=== PATIENT | male | born 1945 | race Caucasian/White ===

== ENCOUNTER 2022-02-23 10:26 | Outpatient (CLI) | payer MEDICARE, SELFPAY ==
--- NOTE | ~2022-02-23 | XR_ITS ---
EXAM: XR lumbar spine 2-3V DATE: 02/23/2022 10:43 HISTORY: M54.50 -Low back pain, unspecifiedNON TRAUMA PAIN FOR 3 WEEK . COMPARISON: None available. FINDINGS: Lumbar scoliosis 5 nonrib-bearing lumbar-type vertebral bodies. Pedicles intact. Lumbar str aightening. Concave endplate deformities as can be seen with osteoporosis. Mild height loss at L3 and L5. Multilevel mild disc space narrowing and marginal osteophytosis. Multilevel facet hypertrophy an d sclerosis. No fracture or dislocation. IMPRESSION: Mild compression fractures at L3 and L5. Multilevel degenerative disc disease and facet a rthropathy. Reviewed, dictated and finalized at location K. IMPRESSION: Mild compression fractures at L3 and L5. Multilevel degenerative di sc disease and facet arthropathy.
== END 2022-02-23 10:27 | disposition home or self-care (01) ==
LOC: ANHIMG 10:30
PROVIDERS: PCP Family Medicine; Visit Provider Physician Assistant
DX: M51.36 Other intervertebral disc degeneration, lumbar region (principal)
CPT/HCPCS: 72100

== ENCOUNTER 2022-07-12 07:55 | Day surgery (SDC) | payer MEDICARE, SELFPAY ==
[2022-06-30 08:53] VITALS: BMI 25.7
--- NOTE | 2022-07-12 06:53 | P.PNAN_ITS ---
Anes - Initial Pre Proc Eval Procedure: Operation Date: 07/12/22 10:00 Proposed Procedures p Screening Colonoscopy - Shaka Valdez MD Date/Time: 07/12/22 06:53 Surgeon: Shaka Valdez MD Pre Op Diagnosis: History of Colon Polyps Patient Data Age: 76 Gender: M Height: 1.75 m Weight: 79 kg Allergies Allergy/AdvReac Type Severity Reaction Status Date / Time No Known Allergies Allergy Verified 07/12/22 08:49 Home Medications Medication Instructions Recorded Confirmed Type aspirin 81 mg tablet,delayed 81 mg PO DAILY 06/20/19 07/12/22 History release (Adult Low Dose Aspirin) niacin 500 mg tablet 500 mg PO DAILY 06/20/19 07/12/22 History sildenafil 50 mg tablet (Viagra) 50 mg PO DAILY PRN sexual activity 05/21/20 07/12/22 Rx #14 tabs lisinopril 40 mg tablet 40 mg PO DAILY #90 tabs 10/06/21 07/12/22 Rx hydrochlorothiazide 12.5 mg tablet 12.5 mg PO QAM #90 tabs 10/21/21 07/12/22 Rx sodium,potassium,mag sulfates 17.5 See Rx Instructions PO .COMPLEX 05/31/22 07/12/22 Rx gram-3.13 gram-1.6 gram oral soln #354 mL (Suprep Bowel Prep Kit) simvastatin 20 mg tablet (Zocor) 20 mg PO DAILY #90 tabs 06/17/22 07/12/22 Rx zolpidem 10 mg tablet 10 mg PO .qhs #30 tabs 07/09/22 07/12/22 Rx Patient hx anesthesia problems: none Family hx anesthesia problems: none Results Review: All pre-operative results and documents have been reviewed as part of the pre- operative evaluation. [facility] Past Medical History Medical History (Updated 07/12/22 @ 09:20 by Shaka Valdez MD) Essential (primary) hypertension Pure hypercholesterolemia Family History Family History Father Carcinoma of colon Social History Social History Social History: Smoking status: Never smoker Second hand tobacco smoke exposure: No Alcohol intake: never Substance use: never Substance use type: does not use Living arrangements: with family Occupation/Education: retired Gender identity (if verbalized by the patient): Male Sexual Orientation (if Verbalized by the Patient): Straight or Heterosexual Spiritual care concerns: No Anes - Eval Final PreProcedure Day of Procedure 07/12/22 06:53 Patient weight: overweight Heart: regular rate and rhythm Lungs: clear to auscultation Airway: Mallampati scale class II Neurological: alert and oriented Last oral intake: >/= 8 hours ASA classification: II Emergent: no Anesthetic plan: proceed Anesthesia type and monitoring: general GIVS and standard monitoring Results Review: All pre-operative results and documents have been reviewed as part of the pre- operative evaluation. Informed Consent: The patient's anesthetic plan and its attendant risks and benefits were di scussed with the patient/family/POA. Questions were solicited and answers provided to the satisfaction of the patient/family/POA.
[2022-07-12 08:45] VITALS: BP 121/90; PULSE 63; RESP 16; TEMP 36.7; O2SAT 99
[2022-07-12] MEDS: LACTATED RINGERS 1,000 ML 150 ML IV CONT (09:06)
--- NOTE | 2022-07-12 09:18 | P.HP_ITS ---
History of Present Illness History of Present Illness Consent: Risks, benefits, and alternatives have been discussed and questions answered. Patient agrees to proceed with procedure. Chief complaint: History of Colon Polyps Narrative: Trevor Shah is a 76 year old male presents for screening colonoscopy. Patient does have a prior history of colon polyps many years ago. Most recent colonoscopy 2014 was unremarkable. Family history is also significant that his father had colon polyps. Patient presents today for screening colonoscopy. Review of Systems Review of Systems: Review of systems noncontributory. [facility] Past Medical History Medical History (Updated 07/12/22 @ 09:20 by Shaka Valdez MD) Essential (primary) hypertension Pure hypercholesterolemia Family History Family History Father Carcinoma of colon Social History Social History Social History: Smoking status: Never smoker Second hand tobacco smoke exposure: No Alcohol intake: never Substance use: never Substance use type: does not use Living arrangements: with family Occupation/Education: retired Gender identity (if verbalized by the patient): Male Sexual Orientation (if Verbalized by the Patient): Straight or Heterosexual Spiritual care concerns: No Meds Home Medications and Allergies Home Medications Medication Instructions Recorded Confirmed Type aspirin 81 mg tablet,delayed 81 mg PO DAILY 06/20/19 07/12/22 History release (Adult Low Dose Aspirin) niacin 500 mg tablet 500 mg PO DAILY 06/20/19 07/12/22 History sildenafil 50 mg tablet (Viagra) 50 mg PO DAILY PRN sexual activity 05/21/20 07/12/22 Rx #14 tabs lisinopril 40 mg tablet 40 mg PO DAILY #90 tabs 10/06/21 07/12/22 Rx hydrochlorothiazide 12.5 mg tablet 12.5 mg PO QAM #90 tabs 10/21/21 07/12/22 Rx sodium,potassium,mag sulfates 17.5 See Rx Instructions PO .COMPLEX 05/31/22 07/12/22 Rx gram-3.13 gram-1.6 gram oral soln #354 mL (Suprep Bowel Prep Kit) simvastatin 20 mg tablet (Zocor) 20 mg PO DAILY #90 tabs 06/17/22 07/12/22 Rx zolpidem 10 mg tablet 10 mg PO .qhs #30 tabs 07/09/22 07/12/22 Rx Allergies Allergy/AdvReac Type Severity Reaction Status Date / Time No Known Allergies Allergy Verified 07/12/22 08:49 Vital Signs Vital Signs - 24 hr 07/12/22 08:45 Temperature 98.0 F Pulse Rate 63 Respiratory Rate 16 Blood Pressure 121/90 Pulse Oximetry 99 Oxygen Delivery Room Air Exam Narrative: Physical exam reveals patient to be alert. Vital signs stable. HEENT exam is unremarkable. Patient is anicteric. Lungs are clear to auscultation and percussion. Heart is without murmur or extra sounds. Abdomen bowel sounds present soft nontender with no organomegaly. Digital external rectal exam is normal. Assessment and Plan Assessment and plan (1) Encounter for screening colonoscopy: Code(s): Z12.11 - Encounter for screening for malignant neoplasm of colon Status: Acute Assessment and Plan: Patient presents today for screening colonoscopy. Further recommendations will be given after endoscopy.
[2022-07-12 10:14] VITALS: BP 96/69; PULSE 67; RESP 16; O2SAT 96
[2022-07-12 10:24] VITALS: BP 101/71; PULSE 59; RESP 16; O2SAT 96
[2022-07-12 10:34] VITALS: BP 112/73; PULSE 60; RESP 16; O2SAT 100
--- NOTE | 2022-07-12 12:43 | WPDANESPN ---
Anes - Prog Note Post-Op Date/Time: 07/12/22 12:43 Cardiovascular status: normal Respiratory status: normal Airway patency: baseline Mental status: baseline Post-Op hydration status: normal Vital Signs: Last Vital Signs Temp 36.7 C 07/12/22 08:45 Pulse 60 07/12/22 10:34 Resp 16 07/12/22 10:34 BP 112/73 07/12/22 10:34 Pulse Ox 100 07/12/22 10:34 O2 Del Method Room Air 07/12/22 10:34 Pain Score (VAS): 0 I/O: Intake & Output 07/11/22 07/12/22 07/12/22 23:59 07:59 15:59 Intake Total 400 Balance 400 Post-procedural complaints: none Patient Feedback: Patient satisfied with anesthetic care. Other Findings: Patient vital signs back to baseline. Patient denies nausea and vomiting. Patient's pain under control. Patient OK for discharge.
== END 2022-07-12 10:55 | disposition home or self-care (01) ==
PROVIDERS: PCP Family Medicine; Visit Provider Internal Medicine Gastroenterology
PROC: 0DJD8ZZ Inspection of Lower Intestinal Tract, Via Natural or Artificial Opening Endoscopic (ICD-10-PCS; CPT 45378; principal; 2022-07-12 10:00)
DX: Z12.11 Encounter for screening for malignant neoplasm of colon (principal)
CPT/HCPCS: 45378

== ENCOUNTER 2025-02-27 15:39 | Emergency (ER) | payer MEDICARE, SELFPAY ==
--- NOTE | ~2025-02-27 | XR_ITS ---
Clinical history:Elbow injury EXAM:X-ray of the left minimum 3 views TECHNIQUE:4 images of the left elbow were obtained Comparisons:None available FINDINGS: [ No significant degenerative change.] Questionable nondisplaced fracture of the radial head. [ No radiopaque foreign body.] [ No sclerotic or destructive bone lesions.] Soft tissue swelling about the left elbow. IMPRESSION: 1. Questionable nondisplaced fracture of the radial head. No other possible fracture identified. If symptoms persist or worsen consider CT imaging for further assessment. Reviewed, dictated and finalized at location Q. IMPRESSION: 1. Questionable nondisplaced fracture of the radial head. No other possible fra cture identified. If symptoms persist or worsen consider CT imaging for further assessment.
[2025-02-27 15:41] VITALS: BP 144/93; PULSE 101; RESP 20; TEMP 36.3; O2SAT 95
--- NOTE | 2025-02-27 17:07 | ED_ITS ---
HPI - Extremity Injury (Upper) General Chief Complaint: Extremity Injury, Upper Stated Complaint: fall, left elbow lac Time Seen by Provider: 02/27/25 16:56 History of Present Illness HPI narrative: Patient is a 79-year-old male who presents to the ER after sustaining a left elbow injury. He reports he was on asphalt and pulling something backwards when he lost his balance. Patient reports he fell backwards and landed on his left elbow. He reports he is not experiencing any pain at this time. Patient reports he is not on blood thinners and did not hit his head. He endorses a history of high blood pressure, hyperlipidemia, and insomnia. Patient reports he does not want a tetanus shot during this visit. Related Data Home Medications ?Medication ?Instructions ?Recorded ?Confirmed ?Last Taken ?Type aspirin 81 mg tablet,delayed 81 mg PO DAILY 06/20/19 0 01/14/25 Unknown History release (Adult Low Dose Aspirin) niacin 500 mg tablet 500 mg PO DAILY 06/20/19 Unknown History Allergies Allergy/AdvReac Type Severity Reaction Status Date / Time No Known Allergies Allergy Verified 02/27/25 16:46 Review of Systems Review of Systems: All systems reviewed & are unremarkable except as noted in HPI and below PMFSH Past Medical History Medical History Essential (primary) hypertension Pure hypercholesterolemia Family History Family History Father Carcinoma of colon Social History Social History Social History: Smoking status: Never smoker Second hand tobacco smoke exposure: No Alcohol intake: never Substance use: never Substance use type: does not use Living arrangements: with family Occupation/Education: retired Gender identity (if verbalized by the patient): Male Sexual Orientation (if Verbalized by the Patient): Straight or Heterosexual Spiritual care concerns: No Exam Narrative: GENERAL: Well appearing, well-nourished, non-toxic, in no acute distress. HEAD: Normocephalic, atraumatic. NECK: Supple. No adenopathy, no masses. RESPIRATORY: Airway patent, respirations nonlabored. Clear to auscultation bilaterally, no rales, rhonchi, wheezing. CARDIOVASCULAR: Regular rate and rhythm without murmurs, rubs, or gallops. Peripheral pulses 2+ and equal bilaterally. ABDOMINAL: Soft, nontender, nondistended, no hepatosplenomegaly. Normoactive BS. MUSCULOSKELETAL: Moves all extremities. Strength/ROM intact without gross deformities. SKIN: Warm, dry, normal color. No rashes. Approximately 7 cm linear laceration to left lateral elbow, bleeding controlled. NEURO: A&O X3. Speech clear. Cranial nerves II-XII intact. No ataxic movements. PSYCHIATRIC: Appropriate mood and affect. Normal interaction. Course Vital Signs Vital signs: Vital Signs Temperature 36.3 C L 02/27/25 15:41 Pulse Rate 101 H 02/27/25 15:41 Respiratory Rate 20 02/27/25 15:41 Blood Pressure 144/93 H 02/27/25 15:41 Pulse Oximetry 95 02/27/25 15:41 Oxygen Delivery Room Air 02/27/25 15:41 Temperature 36.3 C L 02/27/25 15:41 Pulse Rate 101 H 02/27/25 15:41 Respiratory Rate 20 02/27/25 15:41 Blood Pressure 144/93 H 02/27/25 15:41 Pulse Oximetry 95 02/27/25 15:41 Oxygen Delivery Room Air 02/27/25 15:41 Procedures Laceration Laceration 1: Date: 02/27/25 Time: 18:17 Site: upper extremity Side (If applicable): left Size (cm): 7 Description: linear Depth: simple, single layer Local Anesthetic: lidocaine 1% and with epi Amount of anesthesia used (mL): 8 Pre-repair: wound explored and irrigated extensively ====== Skin Level ====== Skin layer closed with: nylon Size (cm): 4-0 Number of sutures: 4 Technique: simple, interrupted ====== Subcutaneous Layer ====== ====== Muscle Layer ====== ====== Tendon Layer ====== MDM - Extremity Injury (Upper) [facility] Narrative Medical decision making narrative: Patient is a 79-year-old male who presents to the ER after sustaining a left elbow injury. He reports he was on asphalt and pulling something backwards when he lost his balance. Patient reports he fell backwards and landed on his left elbow. He reports he is not experiencing any pain at this time. Patient reports he is not on blood thinners and did not hit his head. He endorses a history of high blood pressure, hyperlipidemia, and insomnia. Patient reports he does not want a tetanus shot during this visit. Labs Ordered: None necessary Imaging Ordered: L elbow x-ray Medications Ordered: Patient refused Tdap and declined pain medication Results: Pt's L elbow x-ray indicates [ No significant degenerative change.] Questionable nondisplaced fracture of the radial head. [ No radiopaque foreign body.] [ No sclerotic or destructive bone lesions.] Soft tissue swelling about the left elbow. IMPRESSION: 1. Questionable nondisplaced fracture of the radial head. No other possible fracture identified. If symptoms persist or worsen consider CT imaging for further assessment. Diagnosis: L elbow laceration, L radial head fracture Consults: orthopedics surgery (outpatient) Patient's tetanus status not up-to-date but he declined vaccination. No active bleeding upon my evaluation. Left elbow x-ray obtained and indicates nondispla ajay fracture of the radial head. Lidocaine with epi was used with adequate anesthesia. Laceration was repaired with 4 sutures without complications. Patient was given wound care instructions and advised to follow-up with primary care doctor in the next 5 days for wound check and suture removal. He continues to deny any pain to the site. Pt was given reasons to return to the ED. He will be discharged home with a prescription for antibiotics (d/t possible radial head fracture) and will be given his first dose in the ER. Pt should have his sutures removed in 7-10 days. All questions answered. Vital signs stable at time of discharge. Differential Diagnosis Differential diagnosis: Likely other (Radial head fracture, ulnar fracture, left elbow laceration) Imaging Data Attestation: I personally reviewed and interpreted this imaging study as follows: Radiologist's impression: Impressions Elbow X-Ray 02/27/25 17:27 IMPRESSION: 1. Questionable nondisplaced fracture of the radial head. No other possible fracture identified. If symptoms persist or worsen consider CT imaging for further assessment. Discharge Plan Discharge Clinical Impression: Laceration of elbow, left, Left radial head fracture Patient Disposition: Home Condition: Stable Instructions: Antibiotic Form, Care For Your Stitches (ED) Additional Instructions: Please return to the ER with any worsening symptoms. Follow-up with primary care provider in the next 5 days to ensure your laceration is healed appr opriately. Take all medications as prescribed, including regularly scheduled medications. You should have your sutures removed in 7-10 days. Please complete your full dose of antibiotics. You may take Tylenol and/or ibuprofen for pain control. If your pain worsens please follow-up with orthopedic surgery. Patient Language: Algerian Prescriptions: New cephalexin 500 mg capsule 500 mg PO Q8H 7 Days Qty: 21 0RF No Action aspirin [Adult Low Dose Aspirin] 81 mg tablet,delayed release (DR/EC) 81 mg PO DAILY niacin 500 mg tablet 500 mg PO DAILY sildenafil [Viagra] 50 mg tablet 50 mg PO DAILY PRN (Reason: sexual activity) Qty: 14 0RF Rx Instructions: administer 30 minutes to 4 hours before activity simvastatin [Zocor] 20 mg tablet 20 mg PO DAILY Qty: 90 3RF lisinopril 40 mg tablet See Rx Instructions .ROUTE .COMPLEX Qty: 90 2RF Dose Instruction: Take 1 tablet by mouth once daily Rx Instructions: Take 1 tablet by mouth once daily hydrochlorothiazide 12.5 mg tablet 12.5 mg PO QAM Qty: 90 2RF zolpidem 10 mg tablet 10 mg PO .qhs Qty: 90 0RF Follow-up/Referrals: Guillermo Zurita MD [Primary Care Provider, Family Practice] Bladimir Barron MD [Physician, Orthopedics] Referral Note: orthopedic surgery Time of Disposition: 18:29
[2025-02-27] MEDS: CEPHALEXIN 500 MG CAPSULE PO (18:40)
[2025-02-27 18:45] VITALS: BP 140/92; PULSE 108; RESP 14; O2SAT 95
== END 2025-02-27 18:48 | disposition home or self-care (01) ==
PROVIDERS: Emergency Provider Registered Nurse; PCP Family Medicine
DX: S52.125A Nondisplaced fracture of head of left radius, initial encounter for closed fracture (principal); S51.012A Laceration without foreign body of left elbow, initial encounter; W01.0XXA Fall on same level from slipping, tripping and stumbling without subsequent striking against object, initial encounter; I10 Essential (primary) hypertension; E78.5 Hyperlipidemia, unspecified; G47.00 Insomnia, unspecified
CPT/HCPCS: 12002; 73080; 99283; A9270